=== PATIENT | female | born 1990 | race Two or more races ===

== ENCOUNTER 2024-08-04 21:02 | Emergency (ER) | payer SELFPAY | END 2024-08-04 23:06 | disposition left against medical advice (07) | LOC: ER 21:06 | DX: R39.89 Other symptoms and signs involving the genitourinary system (principal); R51.9 Headache, unspecified; R00.2 Palpitations; R11.0 Nausea; R19.7 Diarrhea, unspecified; Z53.21 Procedure and treatment not carried out due to patient leaving prior to being seen by health care provider ==